=== PATIENT | male | born 1940 | race Caucasian/White ===

== ENCOUNTER 2016-09-19 07:03 | Outpatient (CLI) | payer MEDICARE, OTHER | END 2016-09-19 07:05 | LOC: LAB 07:03 | PROVIDERS: ATTEND Internal Medicine | DX: E11.9 Type 2 diabetes mellitus without complications (principal) | CPT/HCPCS: 36415; 83036 ==

== ENCOUNTER 2017-04-04 07:04 | Outpatient (CLI) | payer MEDICARE, OTHER ==
[2017-04-04 07:21] LABS: EOSINOPHILS % 2.8 % (0.0-6.8); MEAN CORPUSCULAR HEMOGLOBIN 31.3 pg (28.0-34.0); MEAN CORPUSCULAR VOLUME 97.4 fl (80.0-100.0); MONOCYTES % 5.4 % (0.0-11.0); NEUTROPHILS # 4.4 # k/uL (1.4-7.7)
[2017-04-04 07:23] LABS: APPEARANCE,URINE Clear (CLEAR); COLOR,URINE Yellow (YELLOW); OCCULT BLOOD,URINE Negative (NEGATIVE); PH URINE 5.5 (5.0 - 8.0); UROBILINOGEN URINE 0.2 Eu (0.2-1.0)
[2017-04-04 07:58] LABS: eGFR (African) > 60; eGFR (Non-African) > 60
== END 2017-04-04 07:05 ==
LOC: LAB 07:04
PROVIDERS: ATTEND Internal Medicine
DX: I10 Essential (primary) hypertension (principal); E78.00 Pure hypercholesterolemia, unspecified; K57.90 Diverticulosis of intestine, part unspecified, without perforation or abscess without bleeding; E11.9 Type 2 diabetes mellitus without complications; Z12.5 Encounter for screening for malignant neoplasm of prostate
CPT/HCPCS: 80053; 80061; 81002; 82043; 83036; 85025; G0103; 84153

== ENCOUNTER 2017-08-07 12:54 | Outpatient (CLI) | payer MEDICARE, OTHER | END 2017-08-07 12:55 | LOC: LAB 12:54 | PROVIDERS: ATTEND Internal Medicine | DX: E11.9 Type 2 diabetes mellitus without complications (principal) | CPT/HCPCS: 36415; 83036 ==

== ENCOUNTER 2017-11-11 07:24 | Outpatient (CLI) | payer MEDICARE, OTHER | END 2017-11-11 07:25 | LOC: LAB 07:24 | PROVIDERS: ATTEND Internal Medicine | DX: E11.9 Type 2 diabetes mellitus without complications (principal) | CPT/HCPCS: 36415; 83036 ==

== ENCOUNTER 2018-02-12 07:12 | Outpatient (CLI) | payer MEDICARE, OTHER ==
[2018-02-12 09:00] LABS: MEAN CORPUSCULAR HEMOGLOBIN 31.7 pg (28.0-34.0)
[2018-02-12 09:01] LABS: BASOPHILS % 0.7 (0.0-1.5); EOSINOPHILS % 2.7 % (0.0-6.8); MONOCYTES % 7.3 % (0.0-11.0); NEUTROPHILS # 4.7 # k/uL (1.4-7.7)
[2018-02-12 09:05] LABS: eGFR (Non-African) > 60
[2018-02-12 09:12] LABS: APPEARANCE,URINE CLEAR (CLEAR); COLOR,URINE YELLOW (YELLOW); OCCULT BLOOD,URINE NEGATIVE (NEGATIVE); UROBILINOGEN URINE 0.2 Eu (0.2-1.0)
== END 2018-02-12 14:19 ==
LOC: LAB 07:12
PROVIDERS: ATTEND Internal Medicine
DX: E11.9 Type 2 diabetes mellitus without complications (principal); I10 Essential (primary) hypertension; E78.5 Hyperlipidemia, unspecified; K57.90 Diverticulosis of intestine, part unspecified, without perforation or abscess without bleeding; N52.9 Male erectile dysfunction, unspecified
CPT/HCPCS: 36415; 80053; 80061; 81002; 82043; 83036; 84403; 85025

== ENCOUNTER 2018-05-19 15:41 | Outpatient (CLI) | payer OTHER ==
[2018-05-19 16:01] LABS: MEAN CORPUSCULAR HEMOGLOBIN 30.3 pg (28.0-34.0)
[2018-05-19 16:12] LABS: eGFR (Non-African) > 60
[2018-05-19 17:14] LABS: EOSINOPHILS % 2 % (0-7); MONOCYTES % 8 % (0-11); PLT EST. EST. AGREES W/PLT CT; SEGMENTED NEUTROPHILS % 50 % (39-79)
== END 2018-05-19 15:50 ==
LOC: LAB 15:41
PROVIDERS: ATTEND Student in an Organized Health Care Education/Training Program
DX: Z01.818 Encounter for other preprocedural examination (principal)
CPT/HCPCS: 36415; 80048; 85025

== ENCOUNTER 2018-06-17 07:07 | Outpatient (CLI) | payer OTHER | END 2018-06-17 07:10 | LOC: LAB 07:07 | PROVIDERS: ATTEND Internal Medicine | DX: E11.9 Type 2 diabetes mellitus without complications (principal) | CPT/HCPCS: 36415; 83036 ==